=== PATIENT | female | born 1965 | race Caucasian/White ===

== ENCOUNTER → 2018-03-04 | Outpatient (CLI) | payer BC ==
--- NOTE | 2018-03-09 12:07 | MM ---
Reason for exam: screening (asymptomatic). Last mammogram was performed 17 years and 7 months ago. History: Patient is postmenopausal and had first child at age 31. Family history of breast cancer in mother at age 54 and breast cancer in maternal grandmother at age 60. Excisional biopsy of the left breast, August 19, 2000. Physical Findings: A clinical breast exam by your physician is recommended on an annual basis and results should be correlated with mammographic findings. MG 3D Screening Mammo W/Cad Bilateral CC and MLO view(s) were taken. No prior studies available for comparison. There are scattered fibroglandular densities. There is no discrete abnormality. ASSESSMENT: Benign, BI-RAD 2 RECOMMENDATION: Routine screening mammogram of both breasts in 1 year.
== END | disposition home or self-care (01) ==
LOC: RADMAMWWP 14:48
PROVIDERS: ATTEND Nurse Practitioner
DX: Z12.31 Encounter for screening mammogram for malignant neoplasm of breast (principal)
CPT/HCPCS: 77063; 77067

== ENCOUNTER → 2019-03-23 | Outpatient (CLI) | payer BC ==
--- NOTE | 2019-03-25 13:46 | MM ---
Reason for exam: screening (asymptomatic). Last mammogram was performed 1 year and 1 month ago. History: Patient is postmenopausal and had first child at age 31. Family history of breast cancer in mother at age 54 and breast cancer in maternal grandmother at age 60. Excisional biopsy of the left breast, August 19, 2000. Physical Findings: A clinical breast exam by your physician is recommended on an annual basis and results should be correlated with mammographic findings. MG 3D Screening Mammo W/Cad Bilateral CC and MLO view(s) were taken. Prior study comparison: March 04, 2018, bilateral MG 3d screening mammo w/cad. August 07, 2000, bilateral special view mammogram. There are scattered fibroglandular densities. There is no discrete abnormality. No significant changes when compared with prior studies. ASSESSMENT: Negative, BI-RAD 1 RECOMMENDATION: Routine screening mammogram of both breasts in 1 year.
== END | disposition home or self-care (01) ==
LOC: RADMAMWWP 13:48
PROVIDERS: ATTEND Family Medicine
DX: Z12.31 Encounter for screening mammogram for malignant neoplasm of breast (principal)
CPT/HCPCS: 77063; 77067

== ENCOUNTER → 2020-06-01 | Outpatient (CLI) | payer BC ==
--- NOTE | 2020-06-05 09:26 | MM ---
Reason for exam: screening (asymptomatic). Last mammogram was performed 1 year and 2 months ago. History: Patient is postmenopausal and had first child at age 31. Family history of breast cancer in mother at age 54 and breast cancer in maternal grandmother at age 60. Excisional biopsy of the left breast, August 19, 2000. Physical Findings: A clinical breast exam by your physician is recommended on an annual basis and results should be correlated with mammographic findings. MG Screening Mammo w CAD Bilateral CC and MLO view(s) were taken. Prior study comparison: March 23, 2019, bilateral MG 3d screening mammo w/cad. March 04, 2018, bilateral MG 3d screening mammo w/cad. The breast tissue is almost entirely fat. There is chronic nodularity in the right breast. No significant changes when compared with prior studies. ASSESSMENT: Benign, BI-RAD 2 RECOMMENDATION: Routine screening mammogram of both breasts in 1 year.
== END | disposition home or self-care (01) ==
LOC: RADMAMWWP 10:55
PROVIDERS: ATTEND Family Medicine
DX: Z12.31 Encounter for screening mammogram for malignant neoplasm of breast (principal)
CPT/HCPCS: 77067

== ENCOUNTER 2020-07-21 14:31 | Emergency (ER) | payer BC ==
[2020-07-21 15:13] VITALS: BP 181/92; PULSE 109; RESP 22; TEMP 98
--- NOTE | 2020-07-21 16:02 | XR ---
EXAMINATION TYPE: XR chest 2V DATE OF EXAM: 07/21/2020 COMPARISON: None HISTORY: 54-year-old female with dyspnea, fever, shortness of breath, positive COVID. TECHNIQUE: PA and lateral views FINDINGS: ACDF hardware. Heart upper limits of normal in size. Multifocal patchy mild interstitial opacities. N o pneumothorax or pleural effusion. IMPRESSION: Scattered patchy interstitial infiltrates of COVID pneumonia.
--- NOTE | 2020-07-21 16:04 | ED ---
URI HPI - General Chief Complaint: Upper Respiratory Infection Stated Complaint: +Covid last week. weakness and shaky Time Seen by Provider: 07/21/20 15:24 Source: patient Mode of arrival: ambulatory Limitations: no limitations - History of Present Illness Initial Comments: Patient is a 54-year-old female with history of hypertension [facility] with complaints of increased cough and congestion and some mild increase in shortness of breath. Patient tested positive for Covid on 07/10/2020, 11 days ago, her symptoms started a few days before that. She did follow up with her PCP who started her on steroids and a cough syrup 2 days ago. She states she was feeling improvement after just 1 day of taking these medications. She has been taking a cough syrup at night and it does help her sleep. She states over the last 2 days of taking the steroids she feels a little bit "shaky and unable to fall asleep." She states she is not sure she's taken steroids in the past. She denies history of asthma or COPD, she is a nonsmoker. She denies any chest pains, no abdominal pain, no nausea or vomiting. She has no further complaints at this time. Upon arrival to the ER, she has slightly tachycardia at 109, 94% on room air. - Related Data Allergies Allergy/AdvReac Type Severity Reaction Status Date / Time Sulfa (Sulfonamide Allergy seizures Verified 07/21/20 15:13 Antibiotics) Review of Systems ROS Statement: Those systems with pertinent positive or pertinent negative responses have been documented in the HPI. ROS Other: All systems not noted in ROS Statement are negative. Past Medical History Past Medical History: Hypertension History of Any Multi-Drug Resistant Organisms: None Reported Past Surgical History: Section Additional Past Surgical History / Comment(s): neck surgery Past Psychological History: No Psychological Hx Reported Smoking Status: Never smoker Past Alcohol Use History: Occasional Past Drug Use History: None Reported General Exam - General Exam Comments Initial Comments: GENERAL: Patient is well-developed and well-nourished. Patient is nontoxic and in no acute distress. HEAD: Atraumatic, normocephalic. EYES: Pupils equal round and reactive to light, extraocular movements intact, sclera anicteric, conjunctiva are normal. Eyelids were unremarkable. ENT: TMs normal, nares patent, oropharynx clear without exudates. Moist mucous membranes. NECK: Normal range of motion, supple without lymphadenopathy or JVD. LUNGS: Unlabored respirations. Breath sounds clear to auscultation bilaterally and equal. No wheezes rales or rhonchi. HEART: Regular rate and rhythm without murmurs, rubs or gallops. ABDOMEN: Soft, nontender, normoactive bowel sounds. No guarding, no rebound. No masses appreciated. : Deferred MUSCULOSKELETAL: Normal extremities with adequate strength and normal range of motion, no pitting or edema. No clubbing or cyanosis. NEUROLOGICAL: Patient is alert and oriented x 3. Motor and sensory are also intact. Cranial nerves II through XII grossly intact. Symmetrical smile. Normal speech, normal gait. PSYCH: Normal mood, normal affect. SKIN: Warm, Dry, normal turgor, no rashes or lesions noted. Limitations: no limitations Course Vital Signs 07/21/20 15:08 Temperature 98.0 F Pulse Rate 109 H Respiratory 22 Rate Blood Pressure 181/92 O2 Sat by Pulse 94 L Oximetry Medical Decision Making - Medical Decision Making Patient is a 54-year-old female with history of hypertension, presenting with increasing cough and congestion as well as some shakiness that started 2 days ago. Patient tested positive for covid on 07/10/2020, her symptoms started about a few days before that. Her vital signs are stable upon arrival, her exam is unremarkable. Patient's biggest complaint is his shakiness that started after she started on the steroids. She is currently prescribed 6 mg of Decadron for the next 10 days. Chest x-ray shows scattered patchy mild interstitial opacities consistent with covid Pneumonia. I discussed with patient that her symptoms are most likely from her steroids. I recommended continuing for at least a total of 5 days, she may also try to decrease her dose. She can also follow-up with her PCP. Patient is stable for discharge and she is in agreement with this plan of care. Return parameters were discussed with the patient she verbalized understanding. Case discussed Dr. Ware. Disposition Clinical Impression: COVID-19 Disposition: HOME SELF-CARE Condition: Stable Instructions (If sedation given, give patient instructions): Coronavirus Disease 2019 (COVID-19) Additional Instructions: Please return to the Emergency Department if symptoms worsen or any other concerns. Continue taking medications as prescribed. May decrease the timeframe to 5 days for the steroids or may also decrease the dosage depending on your side effects. Follow-up with your primary care physician. Is patient prescribed a controlled substance at d/c from ED?: No Referrals: Jess Mak MD [Primary Care Provider] - 1-2 days Time of Disposition: 16:43
== END 2020-07-21 16:54 | disposition home or self-care (01) ==
LOC: EC 14:31
DX: U07.1 COVID-19 (principal); I10 Essential (primary) hypertension
CPT/HCPCS: 71046; 99285

== ENCOUNTER → 2021-06-21 | Outpatient (CLI) | payer BC ==
--- NOTE | 2021-06-22 11:47 | MM ---
Reason for exam: screening (asymptomatic). Last mammogram was performed 1 year and 1 month ago. History: Patient is postmenopausal and had first child at age 31. Family history of breast cancer in mother at age 54 and breast cancer in maternal grandmother at age 60. Excisional biopsy of the left breast, August 19, 2000. Physical Findings: A clinical breast exam by your physician is recommended on an annual basis and results should be correlated with mammographic findings. MG 3D Screening Mammo W/Cad Bilateral CC and MLO view(s) were taken. XCCL view(s) were taken of the left breast. Prior study comparison: June 01, 2020, bilateral MG screening mammo w CAD. March 23, 2019, bilateral MG 3d screening mammo w/cad. There are scattered fibroglandular densities. There is no discrete abnormality. No significant changes when compared with prior studies. ASSESSMENT: Negative, BI-RAD 1 RECOMMENDATION: Routine screening mammogram of both breasts in 1 year.
== END | disposition home or self-care (01) ==
LOC: RADMAMWWP 16:26
PROVIDERS: ATTEND Family Medicine
DX: Z12.31 Encounter for screening mammogram for malignant neoplasm of breast (principal); Z78.0 Asymptomatic menopausal state; Z80.3 Family history of malignant neoplasm of breast
CPT/HCPCS: 77063; 77067

== ENCOUNTER → 2022-06-28 | Outpatient (CLI) | payer BC ==
--- NOTE | 2022-07-01 18:44 | MM ---
Reason for Exam: Screening (asymptomatic). Last screening mammogram was performed 12 month(s) ago. Patient History: Menarche at age 11. First Full-Term at age 31. Late child-bearing (after 30). Postmenopausal. 08/19/2000, Excisional Biopsy on the Left side. Maternal grandmother had breast cancer, age 60. Mother had breast cancer, age 54. Risk Values: Estrella 5 year model risk: 3.1%. NCI Lifetime model risk: 17.8%. Prior Study Comparison: 03/23/2019 Bilateral Screening Mammogram, [facility]. 06/01/2020 Bilateral Screening Mammogram, [facility]. 06/21/2021 Bilateral Screening Mammogram, [facility]. Tissue Density: There are scattered fibroglandular densities. Findings: Analyzed By CAD. Unchanged axillary tail lymph nodes on the right. There is no suspicious group of microcalcifications or new suspicious mass in either breast. Overall Assessment: Benign, BI-RAD 2 Management: Screening Mammogram of both breasts in 1 year. 1. Per NCCN guidelines, a 5 year risk greater than 1.67% is used to assess eligibility for risk reduction therapy. Consider specialist referral for further assessment. 2. Patient should continue monthly self breast exams. 3. This exam should not preclude additional follow-up of suspicious palpable abnormalities. Electronically signed and approved by: Jocelin Mares M.D. Radiologist
== END | disposition home or self-care (01) ==
LOC: RADMAMWWP 12:53
PROVIDERS: ATTEND Family Medicine
DX: Z12.31 Encounter for screening mammogram for malignant neoplasm of breast (principal); Z78.0 Asymptomatic menopausal state; Z80.3 Family history of malignant neoplasm of breast
CPT/HCPCS: 77063; 77067

== ENCOUNTER → 2023-07-04 | Outpatient (CLI) | payer BC ==
--- NOTE | 2023-07-09 09:36 | MM ---
Reason for Exam: Screening (asymptomatic). Last screening mammogram was performed 12 month(s) ago. Patient History: Menarche at age 11. First Full-Term at age 31. Late child-bearing (after 30). Postmenopausal. 08/19/2000, Excisional Biopsy on the Left side. Maternal grandmother had breast cancer, age 60. Mother had breast cancer, age 54. Risk Values: Estrella 5 year model risk: 3.2%. NCI Lifetime model risk: 17.4%. Prior Study Comparison: 06/01/2020 Bilateral Screening Mammogram, [facility]. 06/21/2021 Bilateral Screening Mammogram, [facility]. 06/28/2022 Bilateral MG 3D screening mammo w/cad, [facility]. Tissue Density: There are scattered areas of fibroglandular density. Findings: Analyzed By CAD. There is no suspicious group of microcalcifications or new suspicious mass in either breast. Stable chronic nodularity the outer margin of the right breast dating back to multiple exams. Benign appearing calcifications. Overall Assessment: Benign, BI-RAD 2 Management: Screening Mammogram of both breasts in 1 year. . Patient should continue monthly self-breast exams. A clinical breast exam by your physician is recommended on an annual basis. This exam should not preclude additional follow-up of suspicious palpable abnormalities. Note on Estrella scores and lifetime risk: 1. A Estrella score greater than 3% is considered moderate risk. If this is the case, consider specialist referral to assess eligibility for a risk reducing agent. 2. If overall lifetime risk for the development of breast cancer is 20% or higher, the patient may qualify for future screening with alternating mammogram and breast MRI. Electronically signed and approved by: Landon Streeter M.D. Radiologis
== END | disposition home or self-care (01) ==
LOC: RADMAMWWP 09:20
PROVIDERS: ATTEND Family Medicine
DX: Z12.31 Encounter for screening mammogram for malignant neoplasm of breast (principal); Z80.3 Family history of malignant neoplasm of breast; Z78.0 Asymptomatic menopausal state
CPT/HCPCS: 77063; 77067

== ENCOUNTER → 2024-07-09 | Outpatient (CLI) | payer BC ==
--- NOTE | 2024-07-09 10:43 | MM ---
Reason for Exam: Screening (asymptomatic). Last screening mammogram was performed 12 month(s) ago. Patient History: Menarche at age 11. First Full-Term at age 31. Late child-bearing (after 30). Postmenopausal. 08/19/2000, Excisional Biopsy on the Left side. Maternal grandmother had breast cancer, age 60. Mother had breast cancer, age 54. Risk Values: Estrella 5 year model risk: 3.3%. NCI Lifetime model risk: 17.0%. Prior Study Comparison: 03/04/2018 Bilateral Screening Mammogram, [facility]. 03/23/2019 Bilateral Screening Mammogram, [facility]. 06/01/2020 Bilateral Screening Mammogram, [facility]. 06/21/2021 Bilateral Screening Mammogram, [facility]. 06/28/2022 Bilateral MG 3D screening mammo w/cad, [facility]. 07/04/2023 Bilateral MG 3D screening mammo w/cad, [facility]. Tissue Density: There are scattered areas of fibroglandular density. Findings: Analyzed By CAD. There is no suspicious group of microcalcifications or new suspicious mass in either breast. And benign-appearing calcified. The nodular density lower central left breast measuring 7 mm an approximately 6 cm from the nipple line. Overall Assessment: Incomplete: need additional imaging evaluation, BI-RAD 0 Management: Diagnostic Mammogram of the left breast. . Patient should continue monthly self-breast exams. A clinical breast exam by your physician is recommended on an annual basis. This exam should not preclude additional follow-up of suspicious palpable abnormalities. Note on Estrella scores and lifetime risk: 1. A Estrella score greater than 3% is considered moderate risk. If this is the case, consider specialist referral to assess eligibility for a risk reducing agent. 2. If overall lifetime risk for the development of breast cancer is 20% or higher, the patient may qualify for future screening with alternating mammogram and breast MRI. [facility], , 07/09/2024 10:41 AM. Electronically signed and approved by: Landon Streeter M.D. Radiologis
== END | disposition home or self-care (01) ==
LOC: RADMAMWWP 09:47
PROVIDERS: ATTEND Family Medicine
DX: Z12.31 Encounter for screening mammogram for malignant neoplasm of breast (principal); R92.323 Mammographic fibroglandular density, bilateral breasts; Z78.0 Asymptomatic menopausal state; Z80.3 Family history of malignant neoplasm of breast
CPT/HCPCS: 77063; 77067

== ENCOUNTER → 2024-07-16 | Outpatient (CLI) | payer BC ==
--- NOTE | 2024-07-16 13:13 | MM ---
Reason for Exam: Additional evaluation requested from abnormal screening. Last screening mammogram was performed less than 1 month ago. Patient History: Menarche at age 11. First Full-Term at age 31. Late child-bearing (after 30). Postmenopausal. 08/19/2000, Excisional Biopsy on the Left side. Maternal grandmother had breast cancer, age 60. Mother had breast cancer, age 54. Risk Values: Estrella 5 year model risk: 3.3%. NCI Lifetime model risk: 17.0%. Prior Study Comparison: 03/04/2018 Bilateral Screening Mammogram, [facility]. 03/23/2019 Bilateral Screening Mammogram, [facility]. 06/01/2020 Bilateral Screening Mammogram, [facility]. 06/21/2021 Bilateral Screening Mammogram, [facility]. 06/28/2022 Bilateral MG 3D screening mammo w/cad, [facility]. 07/04/2023 Bilateral MG 3D screening mammo w/cad, [facility]. 07/09/2024 Bilateral MG 3D screening mammo w/cad, [facility]. Tissue Density: Left: The breasts are heterogeneously dense, which may obscure small masses. Findings: Analyzed By CAD. Persistent nodular density seen only on the CC view at the approximate 6:00 position 7.5 cm from the nipple measuring 8 mm in size. Ultrasound is recommended. Overall Assessment: Incomplete: need additional imaging evaluation, BI-RAD 0 Management: Diagnostic Breast Ultrasound of the left breast. . Results were given to the patient verbally at the time of exam. Patient should continue monthly self-breast exams. A clinical breast exam by your physician is recommended on an annual basis. This exam should not preclude additional follow-up of suspicious palpable abnormalities. Note on Estrella scores and lifetime risk: 1. A Estrella score greater than 3% is considered moderate risk. If this is the case, consider specialist referral to assess eligibility for a risk reducing agent. 2. If overall lifetime risk for the development of breast cancer is 20% or higher, the patient may qualify for future screening with alternating mammogram and breast MRI. [facility], , 07/16/2024 1:09 PM. Electronically signed and approved by: Sonu Colón M.D. Radiologis
--- NOTE | 2024-07-16 14:08 | USB ---
Reason for Exam: Additional evaluation requested from abnormal screening. Patient History: Menarche at age 11. First Full-Term at age 31. Late child-bearing (after 30). Postmenopausal. 08/19/2000, Excisional Biopsy on the Left side. Maternal grandmother had breast cancer, age 60. Mother had breast cancer, age 54. Risk Values: Estrella 5 year model risk: 3.3%. NCI Lifetime model risk: 17.0%. Prior Study Comparison: 06/28/2022 Bilateral MG 3D screening mammo w/cad, [facility]. 07/04/2023 Bilateral MG 3D screening mammo w/cad, [facility]. 07/09/2024 Bilateral MG 3D screening mammo w/cad, [facility]. Findings: The lower section of the breast of the left breast, the axilla of the left breast and the retroareolar of the left breast were scanned. The 6:00 position is a small cystic lesion measuring 5 x 6 mm compatible with mammographic abnormality. No solid masses are present. Overall Assessment: Benign, BI-RAD 2 Management: Screening Mammogram of both breasts in 1 year. A clinical breast exam by your physician is recommended on an annual basis and results should be correlated with mammographic findings. This exam should not preclude additional follow-up of suspicious palpable abnormalities. Results were given to the patient verbally at the time of exam. [facility], , 07/16/2024 1:49 PM. Electronically signed and approved by: Sonu Colón M.D. Radiologis
== END | disposition home or self-care (01) ==
LOC: RADMAMWWP 12:24
PROVIDERS: ATTEND Family Medicine
DX: R92.8 Other abnormal and inconclusive findings on diagnostic imaging of breast (principal); R92.332 Mammographic heterogeneous density, left breast; Z78.0 Asymptomatic menopausal state; Z80.3 Family history of malignant neoplasm of breast
CPT/HCPCS: 77061; 77065